=== PATIENT | female | born 1990 | race Native Hawaiian/Other Pacific Islander ===

== ENCOUNTER 2019-05-28 10:48 | Emergency (ER) | payer OTHER ==
[~2019-05-28] VITALS: Ht 157.5 cm; Wt 81.6 kg
[2019-05-28 11:01] VITALS: TEMP 98.1
[2019-05-28 11:36] LABS: PLATELET COUNT 297 K/uL (152-353)
[2019-05-28 12:02] LABS: POTASSIUM 4.4 mmol/L (3.6-5.2)
[2019-05-28 14:53] VITALS: BP 132/68
== END 2019-05-28 14:53 | disposition home or self-care (01) ==
LOC: ED 10:48
PROVIDERS: Emergency Medicine
DX: K80.20 Calculus of gallbladder without cholecystitis without obstruction (principal)
CPT/HCPCS: 36415; 80053; 81000; 82150; 83690; 85027; 96360; 96375; 99284; J1885; J2270; J2405

== ENCOUNTER 2019-06-01 11:41 | Emergency (ER) | payer OTHER ==
[~2019-06-01] VITALS: Ht 157.5 cm; Wt 81.6 kg
[2019-06-01 11:57] VITALS: BP 153/98; TEMP 98.8
== END 2019-06-01 14:08 | disposition home or self-care (01) ==
LOC: ED 11:41
DX: K80.20 Calculus of gallbladder without cholecystitis without obstruction (principal); R10.11 Right upper quadrant pain
CPT/HCPCS: 96372; 99283; J1885

== ENCOUNTER 2019-07-19 10:14 | Emergency (ER) | payer OTHER ==
[~2019-07-19] VITALS: Ht 157.5 cm; Wt 81.6 kg
[2019-07-19 11:10] LABS: PLATELET COUNT 303 K/uL (152-353)
[2019-07-19 11:17] LABS: POTASSIUM 4.7 mmol/L (3.6-5.2)
[2019-07-19 12:45] VITALS: BP 126/78; TEMP 97.8
== END 2019-07-19 12:45 | disposition home or self-care (01) ==
LOC: ED 10:14
PROVIDERS: Student in an Organized Health Care Education/Training Program
DX: K80.20 Calculus of gallbladder without cholecystitis without obstruction (principal); L73.9 Follicular disorder, unspecified
CPT/HCPCS: 80053; 81000; 83690; 83735; 85027; 96374; 96375; 99284; J1885; J2405

== ENCOUNTER 2019-08-30 14:12 | Emergency (ER) | payer OTHER ==
[~2019-08-30] VITALS: Ht 160 cm; Wt 90.7 kg
[2019-08-30 14:26] VITALS: TEMP 98.2
[2019-08-30 15:21] LABS: PLATELET COUNT 259 K/uL (152-353)
[2019-08-30 15:23] LABS: POTASSIUM 3.7 mmol/L (3.6-5.2)
[2019-08-30 16:54] VITALS: BP 138/62
== END 2019-08-30 16:54 | disposition home or self-care (01) ==
LOC: ED 14:12
PROVIDERS: Emergency Medicine
DX: R10.13 Epigastric pain (principal); K80.80 Other cholelithiasis without obstruction
CPT/HCPCS: 36415; 80053; 81000; 82150; 83690; 85027; 96360; 96375; 99284; J1885

== ENCOUNTER 2019-10-28 10:16 | Emergency (ER) | payer OTHER ==
[~2019-10-28] VITALS: Ht 160 cm; Wt 90.7 kg
[2019-10-28 10:45] VITALS: BP 152/99; TEMP 97.7
== END 2019-10-28 17:05 | disposition home or self-care (01) ==
LOC: ED 10:16
DX: J06.9 Acute upper respiratory infection, unspecified (principal); J01.80 Other acute sinusitis
CPT/HCPCS: 87502; 87651; 99283

== ENCOUNTER 2020-04-13 10:17 | Emergency (ER) | payer OTHER ==
[~2020-04-13] VITALS: Ht 160 cm; Wt 90.7 kg
[2020-04-13 10:39] VITALS: TEMP 98.3
[2020-04-13 11:06] LABS: PLATELET COUNT 324 K/uL (152-353)
[2020-04-13 14:52] VITALS: BP 138/74
== END 2020-04-13 14:52 | disposition home or self-care (01) ==
LOC: ED 10:17
DX: K80.20 Calculus of gallbladder without cholecystitis without obstruction (principal)
CPT/HCPCS: 80053; 82150; 83690; 85027; 96374; 96375; 99284; J1170; J1885; J2405; Q9963

== ENCOUNTER 2020-04-30 11:51 | Emergency (ER) | payer OTHER ==
[~2020-04-30] VITALS: Ht 157.5 cm; Wt 86.2 kg
[2020-04-30 11:59] VITALS: TEMP 98.2
[2020-04-30 12:31] LABS: PLATELET COUNT 290 K/uL (152-353)
[2020-04-30 12:37] LABS: POTASSIUM 4.4 mmol/L (3.6-5.2)
[2020-04-30 13:24] VITALS: BP 148/75
== END 2020-04-30 13:25 | disposition home or self-care (01) ==
LOC: ED 11:51
PROVIDERS: Hospitalist
DX: K82.8 Other specified diseases of gallbladder (principal)
CPT/HCPCS: 36415; 80053; 81000; 81025; 82150; 83690; 85027; 96374; 96375; 99284; J1170; J1885; J2405

== ENCOUNTER 2020-05-17 11:07 | Emergency (ER) | payer OTHER ==
[~2020-05-17] VITALS: Ht 160 cm; Wt 86.2 kg
[2020-05-17 11:10] VITALS: BP 151/92; TEMP 98.7
== END 2020-05-17 11:50 | disposition home or self-care (01) ==
LOC: ED 11:07
DX: R10.9 Unspecified abdominal pain (principal); K82.8 Other specified diseases of gallbladder
CPT/HCPCS: 80307; 81000; 99282; 99283; J1885

== ENCOUNTER 2020-06-05 16:23 | Emergency (ER) | payer OTHER ==
[~2020-06-05] VITALS: Ht 160 cm; Wt 86.2 kg
[2020-06-05 18:20] LABS: PLATELET COUNT 303 K/uL (152-353)
[2020-06-05 18:27] LABS: POTASSIUM 3.9 mmol/L (3.6-5.2)
[2020-06-05 20:00] VITALS: BP 135/82; TEMP 98.7
== END 2020-06-05 20:00 | disposition home or self-care (01) ==
LOC: ED 16:23
PROVIDERS: Emergency Medicine Emergency Medical Services
DX: K80.50 Calculus of bile duct without cholangitis or cholecystitis without obstruction (principal)
CPT/HCPCS: 80053; 81000; 83690; 85027; 96360; 96375; 96376; 99284; J1170; J1885; J2405

== ENCOUNTER 2020-07-09 12:38 | Emergency (ER) | payer OTHER ==
[~2020-07-09] VITALS: Ht 157.5 cm; Wt 86.2 kg
[2020-07-09 13:32] LABS: PLATELET COUNT 293 K/uL (152-353)
[2020-07-09 13:39] LABS: POTASSIUM 4.2 mmol/L (3.6-5.2)
[2020-07-09 14:32] VITALS: BP 142/74; TEMP 98.3
== END 2020-07-09 14:33 | disposition home or self-care (01) ==
LOC: ED 12:38
PROVIDERS: Emergency Medicine Emergency Medical Services
DX: K80.50 Calculus of bile duct without cholangitis or cholecystitis without obstruction (principal)
CPT/HCPCS: 36415; 80053; 83690; 85027; 96360; 96375; 99284; J1170; J1885; J2270; J2405

== ENCOUNTER 2020-07-20 07:30 | Emergency (ER) | payer OTHER ==
[2020-07-20 19:03] LABS: POTASSIUM 4.2 mmol/L (3.6-5.2)
[2020-07-20 19:46] LABS: PLATELET COUNT 308 K/uL (152-353)
== END 2020-07-20 13:14 | disposition home or self-care (01) ==
LOC: ED 07:30
PROVIDERS: Hospitalist
DX: K82.8 Other specified diseases of gallbladder (principal); R10.11 Right upper quadrant pain; G89.29 Other chronic pain; R11.2 Nausea with vomiting, unspecified
CPT/HCPCS: 36415; 80053; 80320; 81000; 82150; 83690; 85027; 96360; 96365; 96374; 96375; 96376; 99284

== ENCOUNTER 2020-08-07 23:08 | Emergency (ER) | payer OTHER ==
[~2020-08-07] VITALS: Ht 157.5 cm; Wt 83.9 kg
[2020-08-08 01:52] LABS: PLATELET COUNT 275 K/uL (152-353)
[2020-08-08 02:09] LABS: POTASSIUM 4.1 mmol/L (3.6-5.2)
[2020-08-08 03:14] VITALS: BP 130/85; TEMP 98.3
== END 2020-08-08 03:15 | disposition home or self-care (01) ==
LOC: ED 23:08
PROVIDERS: Hospitalist
DX: R10.11 Right upper quadrant pain (principal); G89.29 Other chronic pain; K80.20 Calculus of gallbladder without cholecystitis without obstruction
CPT/HCPCS: 36415; 80053; 81000; 81025; 82150; 83690; 85027; 96365; 96374; 96375; 99284; J1170; J1885; J2405

== ENCOUNTER 2020-08-12 10:20 | Emergency (ER) | payer OTHER ==
[~2020-08-12] VITALS: Ht 157.5 cm; Wt 83.9 kg
[2020-08-12 11:25] VITALS: BP 125/82; TEMP 98.2
== END 2020-08-12 11:30 | disposition home or self-care (01) ==
LOC: ED 10:20
DX: K80.80 Other cholelithiasis without obstruction (principal)
CPT/HCPCS: 99282; J1885

== ENCOUNTER 2020-08-24 16:40 | Emergency (ER) | payer OTHER ==
[~2020-08-24] VITALS: Ht 157.5 cm; Wt 83.9 kg
[2020-08-24 17:22] LABS: PLATELET COUNT 306 K/uL (152-353)
[2020-08-24 17:28] LABS: POTASSIUM 3.8 mmol/L (3.6-5.2)
[2020-08-24 19:22] VITALS: BP 152/74; TEMP 98.1
== END 2020-08-24 19:23 | disposition home or self-care (01) ==
LOC: ED 16:40
PROVIDERS: Hospitalist
DX: R10.84 Generalized abdominal pain (principal); Z90.49 Acquired absence of other specified parts of digestive tract; R11.2 Nausea with vomiting, unspecified
CPT/HCPCS: 36415; 80053; 82150; 83690; 85027; 87040; 96361; 96365; 96375; 99284; J1885; J2270; J2405; J2543

== ENCOUNTER 2020-10-14 07:54 | Emergency (ER) | payer OTHER ==
[~2020-10-14] VITALS: Ht 157.5 cm; Wt 83.9 kg
[2020-10-14 09:00] VITALS: BP 128/82; TEMP 98.8
== END 2020-10-14 09:00 | disposition home or self-care (01) ==
LOC: ED 07:54
PROC: 2W3QX1Z Immobilization of Right Lower Leg using Splint (ICD-10-PCS; principal; 2020-10-14)
DX: S93.491A Sprain of other ligament of right ankle, initial encounter (principal); W18.39XA Other fall on same level, initial encounter; Y92.098 Other place in other non-institutional residence as the place of occurrence of the external cause
CPT/HCPCS: 96372; 99283; J1885

== ENCOUNTER 2020-12-18 08:53 | Emergency (ER) | payer OTHER ==
[~2020-12-18] VITALS: Ht 157.5 cm; Wt 83.9 kg
[2020-12-18 09:00] VITALS: BP 161/100; TEMP 97.8
== END 2020-12-18 09:57 | disposition home or self-care (01) ==
LOC: ED 08:53
DX: S93.491A Sprain of other ligament of right ankle, initial encounter (principal); Z98.890 Other specified postprocedural states; W18.39XA Other fall on same level, initial encounter; Y92.89 Other specified places as the place of occurrence of the external cause
CPT/HCPCS: 99283; J1885

== ENCOUNTER 2021-04-15 19:58 | Emergency (ER) | payer OTHER ==
[~2021-04-15] VITALS: Ht 157.5 cm; Wt 86.2 kg
[2021-04-15 20:08] VITALS: BP 117/79; TEMP 98.9
== END 2021-04-15 21:44 | disposition home or self-care (01) ==
LOC: ED 19:58
DX: S93.692A Other sprain of left foot, initial encounter (principal); W17.89XA Other fall from one level to another, initial encounter; Y92.89 Other specified places as the place of occurrence of the external cause
CPT/HCPCS: 96372; 99283; J1885